=== PATIENT | female | born 1990 | race Caucasian/White ===

== ENCOUNTER 2022-03-25 16:13 | Emergency (ER) | payer OTHER ==
[2022-03-26] MEDS ORDERED: ALBU90OI INH (17:46)
== END 2022-03-25 19:00 | disposition home or self-care (01) ==
DX: J10.1 Influenza due to other identified influenza virus with other respiratory manifestations (principal); J45.909 Unspecified asthma, uncomplicated; Z20.822 Contact with and (suspected) exposure to COVID-19

== ENCOUNTER 2022-03-26 16:52 | Inpatient (IN) | payer MEDICAID ==
[~2022-03-26] VITALS: Ht 157.5 cm; Wt 63.6 kg
[2022-03-26 17:42] LABS: BASOPHILS ABSOLUTE AUTO 0.02 K/mm3 (0.00-0.23); BASOPHILS PERCENT AUTO 0 % (0-2); EOSINOPHILS ABSOLUTE AUTO 0.13 K/mm3 (0.00-0.68); EOSINOPHILS PERCENT AUTO 1 % (0-6); Hematocrit 24.8 % (33.0-51.0); Hemoglobin 8.7 g/dL (11.5-16.0); IMMATURE GRAN ABSOLUTE AUTO 0.04 K/mm3 (0.00-0.10); IMMATURE GRAN PERCENT AUTO 0 % (0-1); LYMPHOCYTES ABSOLUTE AUTO 0.89 K/mm3 (0.84-5.20); LYMPHOCYTES PERCENT AUTO 9 % (21-46); MONOCYTES ABSOLUTE AUTO 0.98 K/mm3 (0.16-1.47); MONOCYTES PERCENT AUTO 10 % (4-13); Mean Corpuscular HGB 30.5 pg (26.0-34.0); Mean Corpuscular HGB Conc 35.1 g/dL (31.5-36.5); Mean Corpuscular Volume 87 fL (80-100); Mean Platelet Volume 9.4 fL (9.1-12.4); NEUTROPHILS ABSOLUTE AUTO 7.62 K/mm3 (1.96-9.15); NEUTROPHILS PERCENT AUTO 79 % (41-73); Platelet Count 240 K/mm3 (150-400); RDW Coefficient Variation 13.5 % (11.7-14.2); RDW Standard Deviation 42.9 fL (35.1-46.3); Red Blood Cell Count 2.85 M/mm3 (3.80-5.20); White Blood Cell Count 9.68 K/mm3 (4.00-11.30)
[2022-03-26] MEDS ORDERED: ALBU90OI INH (17:46)
--- NOTE | 2022-03-26 18:58 | NUR ---
03/26/221857 Semaj Spangler DELIVERY OF MALE AT 1834, APGARS 5/8
[2022-03-26 19:07] LABS: pH Cord - Arterial 7.24 (7.28-7.35)
[2022-03-26 19:08] LABS: PO2 Cord - Arterial < 16 mmHg (16-20)
[2022-03-26 19:17] LABS: PCO2 Cord - Venous 45.9 mmHg (40-50); PO2 Cord - Venous 16.9 mmHg (28-32); pH Umbilical Cord - Venous 7.32 (7.26-7.35)
[2022-03-27 06:54] LABS: BASOPHILS ABSOLUTE AUTO 0.01 K/mm3 (0.00-0.23); BASOPHILS PERCENT AUTO 0 % (0-2); EOSINOPHILS ABSOLUTE AUTO 0.01 K/mm3 (0.00-0.68); EOSINOPHILS PERCENT AUTO 0 % (0-6); Hematocrit 23.2 % (33.0-51.0); Hemoglobin 7.9 g/dL (11.5-16.0); IMMATURE GRAN ABSOLUTE AUTO 0.02 K/mm3 (0.00-0.10); IMMATURE GRAN PERCENT AUTO 0 % (0-1); LYMPHOCYTES ABSOLUTE AUTO 1.04 K/mm3 (0.84-5.20); LYMPHOCYTES PERCENT AUTO 12 % (21-46); MONOCYTES ABSOLUTE AUTO 0.67 K/mm3 (0.16-1.47); MONOCYTES PERCENT AUTO 8 % (4-13); Mean Corpuscular HGB 30.2 pg (26.0-34.0); Mean Corpuscular HGB Conc 34.1 g/dL (31.5-36.5); Mean Corpuscular Volume 89 fL (80-100); Mean Platelet Volume 9.6 fL (9.1-12.4); NEUTROPHILS ABSOLUTE AUTO 7.02 K/mm3 (1.96-9.15); NEUTROPHILS PERCENT AUTO 80 % (41-73); Platelet Count 229 K/mm3 (150-400); RDW Coefficient Variation 13.6 % (11.7-14.2); RDW Standard Deviation 44.1 fL (35.1-46.3); Red Blood Cell Count 2.62 M/mm3 (3.80-5.20); White Blood Cell Count 8.77 K/mm3 (4.00-11.30)
[2022-03-28 00:11] LABS: HBSAG SCREEN Negative (Negative); HIV AB/P24 AG SCREEN Non Reactive (Non Reactive)
[2022-03-28 06:44] LABS: BASOPHILS ABSOLUTE AUTO 0.01 K/mm3 (0.00-0.23); BASOPHILS PERCENT AUTO 0 % (0-2); EOSINOPHILS ABSOLUTE AUTO 0.18 K/mm3 (0.00-0.68); EOSINOPHILS PERCENT AUTO 2 % (0-6); Hematocrit 23.4 % (33.0-51.0); Hemoglobin 7.8 g/dL (11.5-16.0); IMMATURE GRAN ABSOLUTE AUTO 0.04 K/mm3 (0.00-0.10); IMMATURE GRAN PERCENT AUTO 0 % (0-1); LYMPHOCYTES ABSOLUTE AUTO 1.28 K/mm3 (0.84-5.20); LYMPHOCYTES PERCENT AUTO 14 % (21-46); MONOCYTES ABSOLUTE AUTO 0.58 K/mm3 (0.16-1.47); MONOCYTES PERCENT AUTO 6 % (4-13); Mean Corpuscular HGB 29.8 pg (26.0-34.0); Mean Corpuscular HGB Conc 33.3 g/dL (31.5-36.5); Mean Corpuscular Volume 89 fL (80-100); Mean Platelet Volume 9.4 fL (9.1-12.4); NEUTROPHILS PERCENT AUTO 78 % (41-73); Platelet Count 230 K/mm3 (150-400); RDW Coefficient Variation 13.6 % (11.7-14.2); RDW Standard Deviation 44.6 fL (35.1-46.3); Red Blood Cell Count 2.62 M/mm3 (3.80-5.20); White Blood Cell Count 9.49 K/mm3 (4.00-11.30)
--- NOTE | 2022-03-28 15:37 | NUR ---
ASSUMED CARE OF PATIENT AT 0715. PATIENT REQUESTED AT 0730, "I WANT TO GO HOME." RN CLARIFIED RECOMMENDED TIMING FOR D/C, AND GIVEN PT'S INFLUENZA DX THAT SHOULD SHE D/C SHE WOULD NOT BE ABLE TO RETURN FOR SEVERAL DAYS TO VISIT HER BABY, TO WHICH SHE REPLIED, "WELL I'M NOT SLEEPING VERY GOOD HERE, AND I WANT MY PRESCRIPTIONS FOR MY MEDS AND TO GO RIGHT NOW." RN CLARIFIED WITH HER THE AMA PROCESS AGAIN EMPHASIZING THAT SHOULD SHE LEAVE HER BABY HER AT THE HOSPITAL WITHOUT A PLAN WITH CPS AND THE FACT THAT SHE HAS INFLUENZA A, THEN THE STAFF COULD NOT GUARANTY IF/WHEN SHE COULD RETURN TO SEE HER BABY. SHE THEN REPLIED, "WELL LEAVING AMA DOESNT SOUND GOOD, I NEED MY MEDS, SO, DO YOU THINK I SHOULD STAY?" RN HAD ANOTHER CLARIFYING CONVERSATION WITH PATIENT ON LEAVING AMA, PARENTAL RIGHTS, CPS INVOLVEMENT IN HER CASE, AND PATIENT CONCLUDED, "WELL I WANT TO STAY AND SEE MY BABY, SO CAN I GO GET A SMOKE BREAK?" AT THIS TIME, RN ALSO ASKED PATIETN IF SHE NEEDED ANY PAIN MEDICATION, SHE REPLIED, "MY PAIN IS NOT THAT BAD, LIKE A 5 OR 6 MAYBE." WHEN RN RETURNED WITH PAIN MEDS, SHE WORKED WITH RN TO COMPLETE HER BABY'S CERTIFICATE BUT STATED, "HIS DAD TOLD ME NOT TO PUT HIS NAME DOWN" BUT DID OPT TO GIVE BABY HIS LAST NAME. SHE ALSO DISCUSSED HER METHADONE CLINIC AND TREATMENT PLAN, STATING SHE HAD BEEN GOING FOR "2 WEEKS" AND THAT PRIOR TO THIS SHE HAD BEEN USING HEROINE. SHE STATED, "YEAH THAT'S WHY I CAME HERE, SO THAT I COULD GET AWAY FROM HIS (BABY) DAD AND STUFF." WHEN CPS AND ADAPT STAFF ARRIVED TO MEET WITH PATIENT, HER CONSENT WAS ALSO OBTAINED TO BEGIN FEEDING BABY WITH FORMULA. HOWEVER THE PATIENT EXPRESSED STRONGLY, "I WANT TO DO WHAT'S BEST FOR HIM, SO I WANT TO BREASTFEED." SHE SHE WAS ADVISED ON WHILE ON METHADONE, WELL THE RISK FOR BABY SHOULD SHE USE HEROIN WHILE ALSO TAKING METHADONE AND , "OH NO THAT'S NOT GOING TO BE A PROBLEM. I'M NOT GOING TO DO THAT." WHEN CPS LEFT, TECHNICAL SALES REPRESENTATIVE WAS INFORMED BY THEM THAT PATIENT HAD EXPRESSED THAT MAYBE SHE WOULDN'T BREAST FEED AND JUST FEED WITH FORMULA SO NOT TO HAVE TO WITHDRAW THE BABY FROM METHADONE TWICE. HOWEVER THE PATIENT THEN ASKED STAFF, "WHERE DO I GET A PUMP? I'M GOING TO START SOON A I GET TO COME BACK." SHE ALSO EXPRESSED, "I'M GOING TO LET HIM HAVE FORMULA, BUT THEN I'LL START PUMPING AND BRING THAT." SHE THEN STATED, "I DON'T KNOW, I'LL LET YOU KNOW WHEN I DECIDE, BUT HE'LL BE DONE WITHDRAWING IN A COUPLE OF DAYS RIGHT? AND THEN I CAN START ?" PATIENT WAS AGAIN EDUCATED ON HER BABY'S WITHDRAWAL STATUS, ON METHADONE, AND ANY RISKS. SHE VERBALIZED UNDERSTANDING AND EXPRESSED AGAIN A DESIRE TO BREASTFEED. SHE THEN REQUESTED WHEN WOULD BE A GOOD TIME TO CALL HER FRIEND TO PICK HER UP TO GO HOME, WHEN STAFF SAID IN THE NEXT HOUR SHE REPLIED, "WELL I ACTUALLY ALREADY CALLED HIM SO HE'LL BE HERE SOON SO I'D LIKE TO GO NOW." HER FRIEND ARRIVED SHORTLY AFTER THIS CONVERSATION, AND WHILE DOING DISCHARGE TEACHING WITH THE PATIENT, HE SAID, "WHY DON'T YOU JUST BOTTLE FEED?" TO THE PATIENT WHEN SHE EXPRESSED THAT SHE WAS GOING TO BREASTFEED. ALL CONVERSATIONS WITH THE PATIENT AND ANY STAFF CONCERNS WERE SHARED WITH CPS AT THE TIME OF THIS NOTE.
--- NOTE | 2022-03-30 10:33 | NUR ---
[facility] PT HAD 1000 APPOINTMENT WAS NO SHOW, I CALLED HER AT 1033 - OPTED TO DO PHONE APPOINTMENT RELATED TO FLU - PER PT HAS HAD BM SINCE C/S, MEDICATION TAKING: PERCOCET, INHALER, PNV, & METHADONE. PER PT BLEEDING ALMOST STOPPED, PAIN IS BEING MANAGED WELL AND DECREASING PER PT, INCISION HAS NO ISSUES. PER PT DENIES ANY SWELLING OR EDEMA. PT IS SUPPOSED TO SCHEDULE FOR A 2 WEEK FOLLOW UP WITH [facility] HAS NOT SCHEDULED YET; PER PT WILL CALL SATURDAY AND SCHEDULE. PT DENIED ISSUES OR CONCERNS AT THIS TIME, DENIED ANY CHANGES IN ANSWERS FROM PREVIOUS [place] DEPRESSION SCORING. PER PT PLANS TO PUMP AND TRY AND BREASTFED WHEN BABY DISCHARGE, DOES NOT HAVE PUMP. ENCOURAGED TO DEODORIZER OPERATOR FOR ASSISTANCE IN GETTING PUMP. ALSO ENCOURAGED TO CALL WIC AND GET SIGNED UP THEY MIGHT ALSO BE ABLE TO ASSIST IN GETTING A BREAST PUMP; PT VERBALIZED UNDERSTANDING AND DENIED QUESTIONS. PT TO CALL DOCTOR IF ANY CHANGES, CONCERNS OR QUESTIONS; PT VERBALIZED UNDERSTANDING
== END 2022-03-28 13:30 | disposition home or self-care (01) | DRG 786 ==
LOC: ER 16:52 → BC 17:25
PROVIDERS: ADMIT Obstetrics & Gynecology
PROC: 10D00Z1 Extraction of Products of Conception, Low, Open Approach (ICD-10-PCS; principal; 2022-03-26 18:00)
DX: O34.211 Maternal care for low transverse scar from previous cesarean delivery (principal); O45.93 Premature separation of placenta, unspecified, third trimester; O99.324 Drug use complicating childbirth; F11.20 Opioid dependence, uncomplicated; Z3A.37 37 weeks gestation of pregnancy; Z37.0 Single live birth; O32.8XX0 Maternal care for other malpresentation of fetus, not applicable or unspecified; O69.81X0 Labor and delivery complicated by cord around neck, without compression, not applicable or unspecified; O99.52 Diseases of the respiratory system complicating childbirth; J45.909 Unspecified asthma, uncomplicated
CPT/HCPCS: 36415; 82803; 85025; 86317; 86592; 86762; 86850; 86900; 86901; 87340; 87389; 88307; 94640; 94664; 94760; A9270; J0330; J0690; J1100; J1885; J2370; J2405; J2590; J2704; J3010; J7120

== ENCOUNTER 2022-03-31 09:55 | Emergency (ER) | payer MEDICAID ==
[~2022-03-31] VITALS: Ht 157.5 cm; Wt 59.0 kg
[~2022-03-31 09:55] MED LIST: ALBU90OI INH
== END 2022-03-31 10:34 | disposition home or self-care (01) ==
LOC: ER 09:55
DX: J11.1 Influenza due to unidentified influenza virus with other respiratory manifestations (principal); J45.909 Unspecified asthma, uncomplicated; F17.210 Nicotine dependence, cigarettes, uncomplicated
CPT/HCPCS: 99283